=== PATIENT | male | born 1975 | race Hispanic/Latino ===

== ENCOUNTER 2021-06-15 07:29 | Emergency (ER) | payer SELFPAY ==
[2021-06-15] MEDS ORDERED: KETOROLAC 30 MG/1 ML INJ IV ONE (08:16)
--- NOTE | 2021-06-15 08:24 | Emergency Department Report ---
HPI - General Chief Complaint: Back Pain/Injury Time Seen by Provider: 06/15/21 08:01 - HPI HPI: 46-year-old male presents to the emergency department with a complaint of a 2-week history of back, flank and abdominal pains. He says that he has a history of kidney stones and feels that he has been passing kidney stones over this time. Earlier in the day he had left-sided back and flank pain and thinks that he passed a stone at that time. Currently has right-sided flank pain. He denies any fever, nausea, vomiting, hematuria. The patient says "I have 7 stones in my kidney." He has required lithotripsy in the past. He says that he follows with a Dr. Karimi for urology. No recent travel or sick contacts at home. He has not taken anything for his symptoms prior to presentation today. ED Past Medical Hx - Past Medical History Previous Medical History?: Yes Additional medical history: KIDNEY STONES - Medications Home Medications: Home Medications Medication Instructions Recorded Confirmed Last Taken Type HYDROcodone/APAP 5-325 [York 1 each PO Q6HR PRN #10 tablet 06/15/21 Unknown Rx 5/325] Ibuprofen [Motrin 800 MG tab] 800 mg PO Q8HR PRN #20 tablet 06/15/21 Unknown Rx ED Review of Systems ROS: Stated complaint: KIDNEY STONES Other details as noted in HPI Comment: All other systems reviewed and negative Constitutional: denies: chills, fever Eyes: denies: eye pain, vision change ENT: denies: ear pain, throat pain Respiratory: denies: cough, shortness of breath Cardiovascular: denies: chest pain, palpitations Gastrointestinal: abdominal pain (And flank). denies: nausea, vomiting Genitourinary: denies: dysuria, discharge Musculoskeletal: back pain. denies: arthralgia Skin: denies: rash, lesions Neurological: denies: headache, weakness Physical Exam - Physical Exam Vital Signs: Vital Signs 06/15/21 07:32 Temperature 98.8 F Pulse Rate 85 Respiratory 16 Rate Blood Pressure 154/90 [Right] O2 Sat by Pulse 98 Oximetry Physical Exam: GENERAL: The patient is well-developed well-nourished. HENT: Normocephalic. Atraumatic. Patient has moist mucous membranes. EYES: Extraocular motions are intact. NECK: Supple. Trachea is midline. CHEST/LUNGS: Clear to auscultation. There is no respiratory distress noted. HEART/CARDIOVASCULAR: Regular. There is no tachycardia. There is no murmur. ABDOMEN: Abdomen is soft, nontender. Patient has normal bowel sounds. There is no abdominal distention. SKIN: Skin is warm and dry. NEURO: The patient is awake, alert, and oriented. The patient is cooperative. The patient has no focal neurologic deficits. Normal speech. MUSCULOSKELETAL: There is no tenderness or deformity. BACK: No midline thoracic or lumbar tenderness to palpation. Mild right-sided CVA tenderness to palpation. ED Course Vital Signs 06/15/21 07:32 Temperature 98.8 F Pulse Rate 85 Respiratory 16 Rate Blood Pressure 154/90 [Right] O2 Sat by Pulse 98 Oximetry ED Medical Decision Making - Lab Data Result diagrams: 06/15/21 08:44 06/15/21 08:44 - Radiology Data Radiology results: report reviewed CT ABDOMEN AND PELVIS WITHOUT CONTRAST HISTORY: Back and flank pain, hx of kidney stones. COMPARISON: None. TECHNIQUE: Helical CT images of the abdomen and pelvis were obtained without administration of intravenous contrast. Sagittal and coronal reformatted images were reviewed. All CT scans at this location are performed using CT dose reduction for ALARA by means of automated exposure control. FINDINGS: Abdomen/pelvis: Exam of the upper abdomen is somewhat limited secondary to excessive patient motion. The liver, biliary sys tem, pancreas, spleen and adrenal glands are grossly unremarkable. Bilateral nephrolithiasis is evident. A few punctate calyceal stones are identified in the right kidney. An 8 mm dystrophic calcification is noted in the right lower renal cortex. Otherwise no focal right renal lesion, ureteral stones or hydronephrosis. There are 3 calyceal stones in the inferior left kidney measuring 2 mm, 2 mm and 14 mm. No focal left renal lesion, ureteral stone or hydronephrosis. The bladder is empty and unremarkable. The bowel loops appear normal caliber and wall thickness. Normal appendix. There are mild atherosclerotic plaques throughout the aorta without acute abnormality. No evidence for adenopathy, free fluid, free air or fluid collection. Lungs/bones: The lung bases are clear. Mild thoracolumbar spondylosis is noted. IMPRESSION: Bilateral nonobstructing nephrolithiasis as described. - Medical Decision Making This patient presents to the emergency department with a complaint of flank pain and back pain that he believes to be due to kidney stones. There is some mild right-sided CVA tenderness to palpation. The abdomen is soft, nondistended. The patient does not appear in any respiratory or acute distress. Labs have been mostly unremarkable thus far including CBC and metabolic panel. CT of the abdomen and pelvis shows bilateral nonobstructing nephrolithiasis. With his history and the findings of intrarenal stones, it is possible that the patient has been passing some stones causing his pain. Vital signs reassuring including being afebrile. He has good outpatient follow-up with urology. Patient has been given a prescription for pain medication. I did check the [facility] prescription monitoring system and the patient has not filled any scheduled her narcotic pain medication for at least the past year. Critical Care Time: No Critical care attestation.: If time is entered above; I have spent that time in minutes in the direct care of this critically ill patient, excluding procedure time. ED Disposition Clinical Impression: Nephrolithiasis, Flank pain Disposition: HOME / SELF CARE / HOMELESS Is pt being admited?: No Condition: Stable Instructions: Renal Colic Additional Instructions: Please follow-up with your primary care physician and neurologist in the next few days. Increase your oral rehydration. You have been prescribed a medication that is sedating and therefore should not be taken prior to driving, working, and responsible for children and in no way should be mixed with alcohol of any quantity. Return to the emergency department with any worsening of your symptoms, new or concerning symptoms not addressed during this current emergency department visit, or with any acute distress. Prescriptions: Ibuprofen [Motrin 800 MG tab] 800 mg PO Q8HR PRN #20 tablet PRN Reason: Pain , Severe (7-10) HYDROcodone/APAP 5-325 [York 5/325] 1 each PO Q6HR PRN #10 tablet PRN Reason: Pain Referrals: Urologist, Your [Other] - 2-3 Days PRIMARY CARE, [Primary Care Provider] - 2-3 Days Time of Disposition: 09:47
[2021-06-15] MEDS ORDERED: MORPHINE 4 MG/1 ML INJ IV ONE (08:54)
--- NOTE | 2021-06-15 09:11 | Cat Scan Report ---
CT ABDOMEN AND PELVIS WITHOUT CONTRAST HISTORY: Back and flank pain, hx of kidney stones. COMPARISON: None. TECHNIQUE: Helical CT images of the abdomen and pelvis were obtained without administration of intrav enous contrast. Sagittal and coronal reformatted images were reviewed. All CT scans at this location are performed using CT dose reduction for ALARA by means of automated exposure control. FINDINGS: Abdomen/pelvis: Exam of the upper abdomen is somewhat limited secondary to excessive patient motion. The liver, biliary system, pancreas, spleen and adrenal glands are grossly unremarkable. Bilateral nephrolithiasis is evident. A few punctate calyceal stones are identified in the right kidn ey. An 8 mm dystrophic calcification is noted in the right lower renal cortex. Otherwise no focal rig ht renal lesion, ureteral stones or hydronephrosis. There are 3 calyceal stones in the inferior left kidney measuring 2 mm, 2 mm and 14 mm. No focal left renal lesion, ureteral stone or hydronephrosis. The bladder is empty and unremarkable. The bowel loops appear normal caliber and wall thickness. Normal appendix. There are mild atheroscler otic plaques throughout the aorta without acute abnormality. No evidence for adenopathy, free fluid, free air or fluid collection. Lungs/bones: The lung bases are clear. Mild thoracolumbar spondylosis is noted. IMPRESSION: Bilateral nonobstructing nephrolithiasis as described. Signer Name: Brett Hernandez Jr, MD Signed: 06/15/2021 9:07 AM Workstation Name: [id number]
[2021-06-15 09:17] LABS: Basophils # (Auto) 0.1 K/mm3 (0.0-0.1); Basophils % (Auto) 0.6 % (0.0-1.8); Eosinophils # (Auto) 0.2 K/mm3 (0.0-0.4); Eosinophils % (Auto) 2.3 % (0.0-4.3); Hematocrit 44.8 % (35.5-45.6); Hemoglobin 14.6 gm/dl (11.8-15.2); Lymphocytes # (Auto) 2.7 K/mm3 (1.2-5.4); Lymphocytes % (Auto) 27.1 % (13.4-35.0); Mean Corpuscular HGB Conc 33 % (32-34); Mean Corpuscular Volume 90 fl (84-94); Monocytes % (Auto) 10.2 % (0.0-7.3); Platelet Count 237 K/mm3 (140-440); Red Blood Count 4.98 M/mm3 (3.65-5.03); Red Cell Distribution Width 13.7 % (13.2-15.2)
[2021-06-15 09:35] LABS: Alanine Aminotransferase 30 units/L (7-56); BUN/Creatinine Ratio 23; Blood Urea Nitrogen 21 mg/dL (9-20); Calcium 9.2 mg/dL (8.4-10.2); Hemolysis Index 77
[2021-06-15 09:58] VITALS: BP 136/72
== END 2021-06-15 09:55 | disposition home or self-care (01) ==
LOC: ED 07:29
DX: N20.0 Calculus of kidney (principal)
CPT/HCPCS: 36415; 74176; 80053; 83690; 85025; 96374; 96375; 99284; J1885; J2270